=== PATIENT | female | born 1945 | race Caucasian/White ===

== ENCOUNTER 2017-04-07 12:07 | Emergency (ER) | payer MEDICARE ==
[~2017-04-07 12:07] MED LIST: ANTI-DIARRHEA2 MG PO; ASPIR 8181 M1 PO; ASPIRIN EC81 MG PO; ATENOLOL100 M1 PO; ATENOLOL50 MG PO; B12 SC; BENADRYL ALLERG25 M1 PO; BENADRYL50 MG PO; BENTYL10 MG; BENTYL20 MG; BUTORPHANO10 MG/1 ML; CALCIUM 600 W/V1 TAB; CALCIUM PO; CALCIUM WITH VI1 TAB PO; CIPRO250 MG PO; CODEINE SULFATE15 M1 PO; COMPAZINE5 MG PO; CRESTOR20 MG/TAB PO; CYCLOBENZAPRINE10 M1 PO; CYCLOBENZAPRINE5 M1 PO; DDAVP0.1 M1 PO; DIGITEK125 MCG PO; DIGOX125 MC1 PO; DIPHENHYDRAMINE50 M2 PO; DITROPAN XL5 M3 PO; DITROPAN5 MG PO; EVOXAC30 MG; EXCEDRIN CAPLET1 TAB; FISH OIL 11000 MG/CA PO; FLONASE16 G1; FOSAMAX PLUS D1 TAB; HUMULIN R100 U/ML; HUMULIN R100 U/ML SQ; HUMULIN R100 UNITS/ SC; HUMULIN-R100 UNITS/ SC; IMODIUM; IMODIUM2 MG PO; INSULIN; KLOR-CON 1010 MEQ; LEVOXYL50 MCG PO; LIPITOR20 MG; LIPOSYN250 ML IV; LISINOPRIL20 MG PO; LISINOPRIL40 M1 PO; LISINOPRIL40 MG PO; LOPERAMIDE2 M2 PO; MAGNESIUM OXIDE PO; METHIMAZOLE5 M1 PO; MULTIVITAMIN1 TAB PO; MYRBETRIQ50 M1 PO; NEXIUM40 MG PO; NORCO 5-325 TA1 EACH PO; NORCO 5/325 TAB1 TAB; NORVASC5 M2 PO; OMEPRAZOLE40 M2 PO; PERCOCET 5/3251 TAB PO; PRILOSEC40 M1 PO; PRILOSEC40 MG PO; PROMETHAZINE HC25 M3 PO; ROSUVASTATIN CA20 MG PO; SKELAXIN800 MG; SLOW-MAG64 MG; SODIUM BICARBO650 M1 PO; SODIUM CHLORIDE10 ML IV; TAPAZOLE5 M1 PO; TENORMIN100 M1 PO; TPN; TPN (ADULT)1 EA IV; TPN IV; TRICOR145 M1 PO; TRICOR145 M2 PO; TRICOR145 MG; TRICOR200 MG; TYLENOL325 MG PO; VANCOMYCIN1.25 GM/25 IV; VITAMIN A8000 UNI1 PO; VITAMIN D PO; VITAMIN D250000 UNI1 PO; VITAMIN D35000 UNI2 PO; VITAMIN E400 UNI4 PO; WELCHOL625 M1 PO; WELCHOL625 MG; WELCHOL625 MG PO; ZINC OXIDE PO; ZOCOR20 MG PO; [UNRECOGNIZED DRUG - OTHER] IV; [UNRECOGNIZED DRUG - OTHER] PO
[2017-04-07] MEDS ORDERED: ATORVASTATIN CA20 M1 PO (13:16)
[2017-04-21] MEDS ORDERED: IBUPROFEN200 M2 PO (15:19)
[2017-04-21] MEDS ORDERED: COPPER PO (15:20)
[2017-04-23] MEDS ORDERED: LASIX20 M1 PO (14:36)
[2017-06-04] MEDS ORDERED: FISH OIL 11000 MG/CA PO (15:52)
[2017-06-04] MEDS ORDERED: LOPERAMIDE2 M2 PO (15:54)
== END 2017-04-07 14:40 ==
LOC: EDMED 12:07
PROC: 0D20XUZ Change Feeding Device in Upper Intestinal Tract, External Approach (ICD-10-PCS; principal; 2017-04-07)
DX: Z43.1 Encounter for attention to gastrostomy (principal); K21.9 Gastro-esophageal reflux disease without esophagitis; Z87.19 Personal history of other diseases of the digestive system; Z90.49 Acquired absence of other specified parts of digestive tract; Z90.89 Acquired absence of other organs

== ENCOUNTER 2017-04-10 10:24 | Emergency (ER) | payer MEDICARE ==
[~2017-04-10 10:24] MED LIST changes: +ATORVASTATIN CA20 M1 PO
[2017-04-21] MEDS ORDERED: IBUPROFEN200 M2 PO (15:19)
[2017-04-21] MEDS ORDERED: COPPER PO (15:20)
[2017-04-23] MEDS ORDERED: LASIX20 M1 PO (14:36)
[2017-06-04] MEDS ORDERED: FISH OIL 11000 MG/CA PO (15:52)
[2017-06-04] MEDS ORDERED: LOPERAMIDE2 M2 PO (15:54)
== END 2017-04-10 13:43 ==
LOC: EDMED 10:24
DX: Z43.1 Encounter for attention to gastrostomy (principal); K21.9 Gastro-esophageal reflux disease without esophagitis; Z90.49 Acquired absence of other specified parts of digestive tract